=== PATIENT | female | born 1960 | race Caucasian/White ===

== ENCOUNTER 2018-10-27 15:49 | Emergency (ER) | payer MEDICARE ==
[~2018-10-27] VITALS: Ht 160 cm; Wt 74.8 kg
[2018-10-27] MEDS ORDERED: PROZAC20 MG PO (16:10)
[2018-10-27] MEDS ORDERED: LEVOTHYROXINE25 MCG PO (16:10)
[2018-10-27] MEDS ORDERED: NEURONTIN300 MG PO (16:10)
[2018-10-27] MEDS ORDERED: ESTRADIOL0.5 MG PO (16:11)
[2018-10-27] MEDS ORDERED: ASPIRIN81 MG PO (16:11)
--- NOTE | 2018-10-28 07:53 | EKG ---
[facility] [address] [facility] [place], [place] [address] Signed Normal sinus rhythm Left axis deviation Low voltage QRS Cannot rule out Anterior infarct , age undetermined Abnormal ECG No previous ECGs available Confirmed by BUBBA ROMAN MD ([id number]) on 10/28/2018 7:52:52 AM Electronically Signed By: BUBBA ROMAN MD 10/28/18 0753 PATIENT NAME: SANDHYA ANG Electrocardiogram DATE OF : 58 PHYSICIAN: BUBBA ROMAN MD REPORT #: [id number] REPORT IS CONFIDENTIAL AND NOT TO BE RELEASED WITHOUT AUTHORIZATION
== END 2018-10-27 17:35 | disposition home or self-care (01) ==
LOC: ED 15:49
DX: R55 Syncope and collapse (principal); S00.531A Contusion of lip, initial encounter; S00.83XA Contusion of other part of head, initial encounter; W22.8XXA Striking against or struck by other objects, initial encounter; I25.2 Old myocardial infarction; Z87.891 Personal history of nicotine dependence; Z88.5 Allergy status to narcotic agent; Z79.899 Other long term (current) drug therapy; Z79.82 Long term (current) use of aspirin
CPT/HCPCS: 71046; 80053; 84484; 85025; 93005; 93010; 99285-25